=== PATIENT | male | born 1950 | race Caucasian/White ===

== ENCOUNTER 2017-11-29 21:47 | Inpatient (IN) | payer MEDICARE, OTHER ==
[~2017-11-29] VITALS: Ht 175.3 cm; Wt 93.9 kg
[2017-11-29] MEDS ORDERED: fentaNYL PF VIAL 100 MCG/2 ML VIAL IV ONE ×4 (22:00→23:45)
[2017-11-29 22:03] LABS: BASO # 0.1 x10^3/uL (0.0-0.2); BASO % 1 % (0-3); EOS # 0.4 x10^3/uL (0.0-0.7); EOS % 4 % (0-3); HEMATOCRIT 43.3 % (39.0-53.0); HEMOGLOBIN 15.4 g/dL (13.0-17.5); LYMPH # 4.5 x10^3/uL (1.0-4.8); LYMPH % 37 % (24-48); MEAN CORPUSCULAR HEMOGLOBIN 31 pg (25-35); MEAN CORPUSCULAR HGB CONC 36 g/dL (31-37); MEAN CORPUSCULAR VOLUME 86 fL (79-100); MONO # 1.2 x10^3/uL (0.0-1.1); MONO % 10 % (0-9); NEUT # 5.8 x10^3uL (1.8-7.7); NEUT % 48 % (31-73); PLATELET COUNT 214 x10^3/uL (140-400); RED BLOOD COUNT 5.03 x10^6/uL (4.30-5.70); WHITE BLOOD COUNT 12.1 x10^3/uL (4.0-11.0)
[2017-11-29 22:06] LABS: CREATININE ISTAT 1.2 mg/dL (0.5-1.4); HEMOGLOBIN ISTAT 14.6 g/dL (14-18); ION CA ISTAT 1.09 mmol/L (1.13-1.32); POTASSIUM ISTAT 3.5 mmol/L (3.5-5.0)
[2017-11-29] MEDS ORDERED: NITROGLYCERIN SUBLINGUAL 0.4 MG BOTTLE OF 25. SL ONE (22:13)
[2017-11-29 22:14] LABS: CALCIUM 9.4 mg/dL (8.5-10.1); CREATININE 1.3 mg/dL (0.7-1.3); GFR 54.9; POTASSIUM 3.7 mmol/L (3.5-5.1)
[2017-11-29] MEDS ORDERED: fentaNYL PF VIAL 100 MCG/2 ML VIAL ONE ×2 (22:14→22:47)
[2017-11-29 22:15] LABS: PROTHROMBIN TIME PATIENT 13.8 SEC (11.7-14.0)
[2017-11-29] MEDS ORDERED: NITROGLYCERIN SUBLINGUAL 0.4 MG BOTTLE OF 25. SL PRN (22:15)
[2017-11-29] MEDS ORDERED: CONTRAST GIVEN. MC PRN (22:15)
[2017-11-29] MEDS ORDERED: IOHEXOL 300 MG/ML 100ML VIAL. IV ONE (22:15)
[2017-11-29] MEDS ORDERED: HEPARIN 25,000UTS/500ML PREMIX 500 ML IV ONE (22:21)
[2017-11-29] MEDS ORDERED: HEPARIN for IV BOLUS 10,000 UNIT/10 ML VIAL. ONE ×2 (22:21→23:13)
--- NOTE | 2017-11-29 22:21 | PHYS DOC ---
Adult General Chief Complaint Chief Complaint: CHEST PAIN-CARDIAC NATURE HPI HPI Patient is a 67 year old male who presents with chest pain. Patient was at rest about 30 minutes prior to presentation when he had onset of severe chest pain which she describes to be crushing. The pain radiates to the left arm and is also severe in the left arm. Patient does have some shortness of breath associated with it symptom. He has not had this previously. He has no prior known history of coronary artery disease although he does take medications for hyperlipidemia. The patient has been at baseline health otherwise. No recent fever, chills, cough. He did not have diaphoresis or palpitations. And route to the emergency department, the patient was perceived to have ST elevation on his EKG. He was given a full strength aspirin along with 2 nitroglycerin. On arrival to the ER, the patient complains of 9/10 ongoing chest pain symptoms. Blood pressure is noted to be 170. EKG does not reveal acute STEMI initially. The patient is taken to CT immediately for CT angiogram. Review of Systems Review of Systems Constitutional: Denies fever or chills Eyes: Denies change in visual acuity HENT: Denies nasal congestion Respiratory: Denies cough Cardiovascular: No additional information not addressed in HPI GI: Denies abdominal pain Musculoskeletal: Denies back pain or joint pain Integument: Denies rash or skin lesions Neurologic: Denies headache Endocrine: Denies polyuria All other systems were reviewed and found to be within normal limits, except as documented in this note. Current Medications Current Medications Current Medications Medications (Trade) Dose Ordered Sig/Daniela Start Time Stop Time Status Last Admin Dose Admin Fentanyl Citrate (Fentanyl 2ml Vial) 100 mcg STK-MED ONCE 11/29/17 22:14 11/29/17 22:15 DC Heparin Sodium (Porcine) (Heparin Sodium) 10,000 unit STK-MED ONCE 11/29/17 22:21 11/29/17 22:22 DC Heparin Sodium/ Dextrose 500 ml @ As Directed STK-MED ONCE 11/29/17 22:21 11/29/17 22:22 DC Heparin Sodium/ Sodium Chloride 1,000 ml @ As Directed STK-MED ONCE 11/29/17 22:45 11/29/17 22:46 DC Info (CONTRAST GIVEN -- Rx MONITORING) 1 each PRN DAILY PRN 11/29/17 22:15 12/01/17 22:14 Iodixanol (Visipaque 320) 100 ml STK-MED ONCE 11/29/17 22:45 11/29/17 22:46 DC Iohexol (Omnipaque 300 Mg/ml) 90 ml 1X ONCE 11/29/17 22:15 11/29/17 22:16 DC 11/29/17 22:18 90 ML Lidocaine HCl (Xylocaine 1% Pf 30ml Vial) 30 ml STK-MED ONCE 11/29/17 22:45 11/29/17 22:46 DC Morphine Sulfate (Morphine Sulfate) 10 mg STK-MED ONCE 11/29/17 22:36 11/29/17 22:37 DC Nitroglycerin (Nitrostat) 0.4 mg STK-MED ONCE 11/29/17 22:13 11/29/17 22:14 DC Nitroglycerin/ Dextrose 250 ml @ 0 mls/hr 1X ONCE 11/29/17 22:30 11/29/17 22:31 DC 11/29/17 22:33 1.5 MLS/HR Allergies Allergies Allergies Coded Allergies Type Severity Reaction Last Updated Verified No Known Drug Allergies 11/29/17 No Physical Exam Physical Exam Constitutional: Well developed, well nourished, significant distress 2/2 pain HENT: Normocephalic, atraumatic, bilateral external ears normal, oropharynx moist Eyes: PERRLA, EOMI, conjunctiva normal Neck: Normal range of motion, no tenderness, supple Cardiovascular:Heart rate regular rhythm, no murmur Lungs & Thorax: Bilateral breath sounds clear to auscultation Abdomen: Bowel sounds normal, soft, no tenderness Skin: Warm, dry, no erythema, no rash Extremities: No tenderness, no cyanosis, no clubbing, ROM intact, no edema Neurologic: Alert and oriented X 3 Psychologic: Affect normal Current Patient Data Vital Signs Vital Signs Date Time Temp Pulse Resp B/P (MAP) Pulse Ox O2 Delivery O2 Flow Rate FiO2 11/29/17 22:43 78 20 149/92 (111) 98 Nasal Cannula 2.0 11/29/17 21:47 98.0 98.0 Lab Values Laboratory Tests Test 11/29/17 21:53 11/29/17 21:55 11/29/17 21:58 POC Troponin I 0.01 ng/ml (<0.08) White Blood Count 12.1 x10^3/uL (4.0-11.0) H Red Blood Count 5.03 x10^6/uL (4.30-5.70) Hemoglobin 15.4 g/dL (13.0-17.5) Hematocrit 43.3 % (39.0-53.0) Mean Corpuscular Volume 86 fL (79-100) Mean Corpuscular Hemoglobin 31 pg (25-35) Mean Corpuscular Hemoglobin Concent 36 g/dL (31-37) Red Cell Distribution Width 14.0 % (11.5-14.5) Platelet Count 214 x10^3/uL (140-400) Neutrophils (%) (Auto) 48 % (31-73) Lymphocytes (%) (Auto) 37 % (24-48) Monocytes (%) (Auto) 10 % (0-9) H Eosinophils (%) (Auto) 4 % (0-3) H Basophils (%) (Auto) 1 % (0-3) Neutrophils # (Auto) 5.8 x10^3uL (1.8-7.7) Lymphocytes # (Auto) 4.5 x10^3/uL (1.0-4.8) Monocytes # (Auto) 1.2 x10^3/uL (0.0-1.1) H Eosinophils # (Auto) 0.4 x10^3/uL (0.0-0.7) Basophils # (Auto) 0.1 x10^3/uL (0.0-0.2) Prothrombin Time 13.8 SEC (11.7-14.0) Prothrombin Time INR 1.1 (0.8-1.1) PTT 35 SEC (24-38) Sodium Level 140 mmol/L (136-145) Potassium Level 3.7 mmol/L (3.5-5.1) Chloride Level 103 mmol/L (98-107) Carbon Dioxide Level 28 mmol/L (21-32) Anion Gap 9 (6-14) 17 mmol/L (6-14) H Blood Urea Nitrogen 19 mg/dL (8-26) Creatinine 1.3 mg/dL (0.7-1.3) Estimated GFR (Cockcroft-Gault) 54.9 Glucose Level 169 mg/dL (70-99) H 162 mg/dL (70-99) H Calcium Level 9.4 mg/dL (8.5-10.1) Troponin I Quantitative < 0.017 ng/mL (0.000-0.055) POC Hemoglobin 14.6 g/dL (14-18) POC Hematocrit 43 % (37-52) POC Sodium 141 mmol/L (135-145) POC Potassium 3.5 mmol/L (3.5-5.0) POC Chloride 103 mmol/L (98-110) POC Total CO2 26 mmol/L (23-32) POC Blood Urea Nitrogen 22 mg/dL (8-26) POC Creatinine 1.2 mg/dL (0.5-1.4) POC Ionized Calcium (Jones) 1.09 mmol/L (1.13-1.32) L Laboratory Tests 11/29/17 21:55 Laboratory Tests 11/29/17 21:55 11/29/17 21:58 EKG EKG No STEMI Interpretation Time: 21:55 Radiology/Procedures Radiology/Procedures [] Course & Med Decision Making Course & Med Decision Making Pertinent Labs and Imaging studies reviewed. (See chart for details) Patient was evaluated immediately upon arrival to the emergency department. He has a presentation that is very concerning for myocardial infarction. The initial EKG did not have significant ST elevation or reciprocal changes. Because of this, STEMI was not activated immediately. The patient was taken to CT scan immediately for CT angiogram to r/o dissection. Upon return from the CT scanner, a repeat EKG was completed which was more concerning for elevation in V1-V3. Cardiology was consulted via telephone (Dr. Serrano) Upon receipt of the second EKG decision was made to activate the STEMI protocol. Patient already received aspirin and route to the emergency department. Meds given in the ER: - Fentanyl 75 mcg x 2 doses - Fentanyl 100 mcg x 1 - Morphine 6 mg IV - Heparin 4,000 u bolus - Heparin gtt started - NTG gtt 22:45: Patient to catheter builder. No acute events during the ED course. Dragon Disclaimer Dragon Disclaimer This electronic medical record was generated, in whole or in part, using a voice recognition dictation system. PATRIZIA CASTILLO DO Nov 29, 2017 22:21
[2017-11-29] MEDS ORDERED: HEPARIN 25,000UTS/500ML PREMIX 500 ML IV PRN (22:30)
[2017-11-29] MEDS ORDERED: NITROGLYCERIN PREMIX 250 ML IV ONE (22:30)
[2017-11-29] MEDS ORDERED: HEPARIN for IV BOLUS 10,000 UNIT/10 ML VIAL. IV ONE ×2 (22:30→23:45)
[2017-11-29] MEDS ORDERED: MORPHINE SULFATE 10 MG/ML VIAL. ONE (22:36)
--- NOTE | 2017-11-29 22:41 | RAD ---
CTA chest abdomen and pelvis with and without contrast: History: Sudden onset of severe chest pain and left arm weakness Axial helical images of the chest abdomen and pelvis were obtained after the administration of 90 cc IV Omni 300 contrast. Oral contrast was not utilized. Postcontrast imaging is timed appropriately for arterial evaluation and multiplanar reconstruction was performed on a separate imaging workstation including 3-D maximum intensity projected imaging as well as 3-D arterial surface rendering. Comparison: none CT OF THE CHEST WITH IV CONTRAST: The thoracic aorta appears normal. There is significant coronary artery calcifications. The lungs are clear. The pulmonary arteries are well-opacified without filling defects. There is no mediastinal lymphadenopathy or hematoma. There is no hilar lymphadenopathy. Impression: Significant coronary artery calcifications. Normal thoracic aorta. End Impression CT SCAN OF THE ABDOMEN WITH IV CONTRAST: Findings: There is atherosclerotic disease within the infrarenal abdominal aorta with calcification and soft plaque. There is no stenosis or dissection. There is no aneurysm. Major arteries arising from the aorta appear normal. Liver: Unremarkable Spleen: Unremarkable Pancreas: Unremarkable Adrenal Glands: Unremarkable Kidneys: Unremarkable Evaluation of stomach and bowel is limited without oral contrast. There is no mass or lymphadenopathy. There is no free air. There is no free fluid. There is spondylolysis and grade 2 anterolisthesis of L5 on S1 with compression of the intraforaminal course the exiting nerve roots bilaterally. Impression: There is spondylolysis and grade 2 anterolisthesis of L5 on S1 with compression of the intraforaminal course the exiting nerve roots bilaterally. No acute findings. End Impression CT OF THE PELVIS WITH IV CONTRAST: There is atherosclerotic disease of the common iliac arteries with left less than 50 percent percent stenosis. There is atherosclerotic disease of the internal iliac arteries. The appendix is normal. There is a fat-containing inguinal canal hernia on the right. There is no lymphadenopathy or free fluid. The bladder appears normal. There is no pericolonic inflammation. Impression: Atherosclerotic disease. No acute findings. End impression PQRS Compliance Statement: One or more of the following individualized dose reduction techniques were utilized for this examination: 1. Automated exposure control 2. Adjustment of the mA and/or kV according to patient size 3. Use of iterative reconstruction technique Electronically signed by: Deyvi Kline III, MD (11/29/2017 10:38 PM) [id number]
[2017-11-29] MEDS ORDERED: LIDOCAINE 1% PF 30 ML VIAL. ONE (22:45)
[2017-11-29] MEDS ORDERED: MORPHINE SULFATE 10 MG/ML VIAL. IV ONE (22:45)
[2017-11-29] MEDS ORDERED: IODIXANOL 320 MG/ML 100 ML VIAL. ONE (22:45)
[2017-11-29] MEDS ORDERED: MIDAZOLAM HCL/PF 2 MG/2 ML VIAL. ONE (22:47)
[2017-11-29] MEDS ORDERED: ACETAMINOPHEN 325 MG TABLET. PO PRN (23:00)
[2017-11-29] MEDS ORDERED: MORPHINE SULFATE 10 MG/ML VIAL. IV PRN (23:00)
[2017-11-29] MEDS ORDERED: ONDANSETRON PF 4 MG/2 ML VIAL. IV PRN (23:00)
[2017-11-29] MEDS ORDERED: TIROFIBAN 5MG -0.9% NS 100 ML IV ONE (23:13)
[2017-11-29] MEDS ORDERED: PRASUGREL 10 MG TABLET. ONE (23:40)
[2017-11-29] MEDS ORDERED: PRASUGREL 10 MG TABLET. PO ONE (23:45)
[2017-11-29] MEDS ORDERED: IODIXANOL 320 MG/ML 100 ML VIAL. IART ONE (23:45)
[2017-11-29] MEDS ORDERED: LIDOCAINE 1% PF 30 ML VIAL. INJ ONE (23:45)
[2017-11-29] MEDS ORDERED: TIROFIBAN 5MG -0.9% NS 100 ML IV PRN (23:45)
[2017-11-29] MEDS ORDERED: MIDAZOLAM HCL/PF 2 MG/2 ML VIAL. IV ONE (23:45)
[2017-11-29] MEDS ORDERED: NITROGLYCERIN 200 MCG/2 ML SYRINGE FOR CATH/VASC LAB. ICAR ONE (23:45)
--- NOTE | 2017-11-29 23:59 | PDOC2 ---
CARDIOLOGY CONSULT NOTE CHEIF COMPLAINT: Crushing chest pain HPI: 67-year-old male without any significant past cardiac history presented to the ER today with 30 minutes of crushing chest pain. Initial evaluation with a CT of the chest did not reveal any dissection. His EKG was suggestive of an anterior STEMI. The cardiac catheter lab team was activated. The patient was urgently taken to the Cath Lab Manager for further evaluation treatment. Prior to presentation patient was doing well but apparently was having some dyspnea for which his PCP was evaluating him with PFTs. Denies any other significant cardiac issues at baseline. PMHX: Dyslipidemia Prior alcohol abuse remotely SOCHX: No alcohol, tobacco or illicit drug use. He is . FAMHX: Noncontributory CURRENT MEDS: Patient started on aspirin, statin, Effient ALLERGIES: Allergies Coded Allergies Type Severity Reaction Last Updated Verified No Known Drug Allergies 11/29/17 No ROS: Negative for 10 out of 14 systems reviewed also otherwise mentioned above in history of present illness PHYSICAL EXAM: Vital Signs: Vital Signs Date Time Temp Pulse Resp B/P (MAP) Pulse Ox O2 Delivery O2 Flow Rate FiO2 11/29/17 23:52 17 94 3.0 11/29/17 22:53 83 145/94 (111) Nasal Cannula 11/29/17 21:47 98.0 98.0 Physical Exam: GEN.: Alert and oriented, mild to moderate distress due to chest pain. HEENT: Head is normocephalic, atraumatic NECK: Supple. LUNGS: Clear to auscultation. HEART: RRR, S1, S2 present. Peripheral pulses intact ABDOMEN: Soft, nontender. Positive bowel sounds. EXTREMITIES: Without any cyanosis. NEUROLOGIC: Normal speech, normal tone PSYCHIATRIC: Normal affect, normal mood. SKIN: No ulcerations DIAGNOSTIC TESTING: EKG demonstrates anteroseptal Q waves with [address] elevation in V1 through V3. Troponin negative Creatinine 1.3. CT of the chest does not reveal any significant pathology except for significant coronary artery consultation. Cardiac catheterization demonstrates heavy calcification in the coronary arteries with a proximal 100% occlusion of the LAD. The patient underwent a PCI to the LAD with implantation of a 3.25 x 20 mm Alpine drug-eluting stent postdilated with 3.5 mm balloon. Please see catheter report for full details. ASSESSMENT: 1. Anterior STEMI 2. Dyslipidemia PLAN: 1. Continue aspirin, Effient 10 mg daily and atorvastatin 40 mg daily 2. Plan for routine echocardiogram tomorrow. 3. Cardiac rehabilitation referral and routine post-STEMI management. 4. Serial enzymes and EKGs. Thank you for this consultation. We will follow-up with him in the morning. PADDY ROMO MD Nov 29, 2017 23:59
[2017-11-30] VITALS (16 sets, daily range): BP systolic 94–120; BP diastolic 61–80
[2017-11-30] MEDS ORDERED: ACETAMINOPHEN 325 MG TABLET. PO PRN
[2017-11-30] MEDS ORDERED: ONDANSETRON PF 4 MG/2 ML VIAL. IV PRN
[2017-11-30] MEDS ORDERED: AMIODARONE 150 MG in IV DEXTROSE 5% 100ML 100 ML IV PRN ×2
[2017-11-30] MEDS ORDERED: ATROPINE 0.5 MG/5 ML DISP.SYRINGE. IV PRN
[2017-11-30] MEDS ORDERED: LIDOCAINE 2% 100 MG/5 ML SYRINGE. IV PRN
[2017-11-30] MEDS ORDERED: NITROGLYCERIN SUBLINGUAL 0.4 MG BOTTLE OF 25. SL PRN
[2017-11-30] MEDS ORDERED: 0.9 % SODIUM CHLORIDE 10 ML DISP.SYRIN. IV PRN
[2017-11-30] MEDS ORDERED: fentaNYL PF VIAL 100 MCG/2 ML VIAL IV PRN
[2017-11-30 04:13] LABS: ALBUMIN 3.6 g/dL (3.4-5.0); CALCIUM 8.7 mg/dL (8.5-10.1); CREATININE 1.1 mg/dL (0.7-1.3); DIRECT BILIRUBIN 0.2 mg/dL (0.0-0.2); GFR 66.6; POTASSIUM 3.8 mmol/L (3.5-5.1); TOTAL BILIRUBIN 0.7 mg/dL (0.2-1.0); TOTAL PROTEIN 6.8 g/dL (6.4-8.2)
[2017-11-30 04:19] LABS: CHOLESTEROL/HDL RATIO 2.9
--- NOTE | 2017-11-30 06:09 | EKG ---
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
--- NOTE | 2017-11-30 06:10 | EKG ---
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
[2017-11-30] MEDS ORDERED: ATOR20TA PO (07:05)
--- NOTE | 2017-11-30 07:11 | EKG ---
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
--- NOTE | 2017-11-30 07:15 | EKG ---
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
[2017-11-30] MEDS ORDERED: ANTI-COAG MONITOR BY PHARMACY. MC PRN (07:30)
--- NOTE | 2017-11-30 07:40 | EKG ---
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
--- NOTE | 2017-11-30 11:33 | CARD ---
MR#: [id number] Date of Study: 11/30/2017 Ordering Physician: PADDY ROMO, Referring Physician: SALINA FREEMAN Tech: Stacy Evans RDCS APPROVED REPORT EXAM: Two-dimensional and M-mode echocardiogram with Doppler and color Doppler. Other Information Quality : Good INDICATION Cardiac Disease: CAD STEMI 2D DIMENSIONS RVDd2.5 (2.9-3.5cm)Left Atrium(2D)3.1 (1.6-4.0cm) IVSd0.9 (0.7-1.1cm)Aortic Root(2D)2.6 (2.0-3.7cm) LVDd3.7 (3.9-5.9cm)LVOT Diameter2.3 (1.8-2.4cm) PWd0.9 (0.7-1.1cm)LVDs2.3 (2.5-4.0cm) FS (%) 30.0 %SV39.9 ml LVEF(%)60.0 (>50%) Aortic Valve AoV Peak Demian.130.4cm/sAoV VTI22.3cm AO Peak GR.6.8mmHgLVOT VTI 19.07cm AO Mean GR.3mmHgAVA (VTI)3.40cm2 Mitral Valve MV E Luvflczf45.0cm/sMV DECEL [id number] MV A Bblumqgk42.3cm/sE/A Ratio1.4 TDI Lateral E' P. V9.20cm/sMedial E' P. V7.50cm/s E/Lateral E'9.9E/Medial E'12.1 Tricuspid Valve TR P. Xvjubagj553yf/sRAP [id number] TR Peak Gr.14cbKyLYUL33muOy Pulmonary Vein S1 Yqissjyt39.2cm/sS2 [place]42.48cm/s D2 Unqiuogp47.5cm/s LEFT VENTRICLE The left ventricle is normal size. There is normal left ventricular wall thickness. Left ventricular systolic function is mildly to moderately decreased. The Ejection Fraction is estimated at 38-40%. Th ere is severe hypokenisis of the anteroseptal, mid to distal septal wall and apex. RIGHT VENTRICLE The right ventricle is normal size. The right ventricular systolic function is normal. ATRIA The left atrium size is normal. The right atrium size is normal. The interatrial septum is intact wit h no evidence for an atrial septal defect or patent foramen ovale as noted on 2-D or Doppler imaging. AORTIC VALVE The aortic valve is calcified but opens well. Doppler and Color Flow revealed no significant aortic r egurgitation. There is no significant aortic valvular stenosis. MITRAL VALVE The mitral valve is calcified but opens well. There is no evidence of mitral valve prolapse. There is no mitral valve stenosis. Doppler and Color-flow revealed trace to mild mitral regurgitation. TRICUSPID VALVE The tricuspid valve is normal in structure and function. Doppler and Color Flow revealed mild tricusp id regurgitation. There is mild pulmonary hypertension. The PA pressure was estimated at 40 mmHg. The re is no tricuspid valve stenosis. PULMONIC VALVE The pulmonic valve is not well visualized. Doppler and Color Flow revealed trace to mild pulmonic maia vular regurgitation. There is no pulmonic valvular stenosis. GREAT VESSELS The aortic root is normal in size. The ascending aorta is normal in size. The IVC is normal in size a nd collapses >50% with inspiration. PERICARDIAL EFFUSION There is no evidence of significant pericardial effusion. Critical Notification Critical Value: No <Conclusion> The left ventricle is normal size. Left ventricular systolic function is mildly to moderately decreased. The Ejection Fraction is estimated at 38-40%. There is severe hypokenisis of the anteroseptal, mid to distal septal wall and apex. There is no significant aortic valvular stenosis. Doppler and Color Flow revealed no significant aortic regurgitation. Doppler and Color-flow revealed trace to mild mitral regurgitation. Doppler and Color Flow revealed mild tricuspid regurgitation. There is mild pulmonary hypertension. The PA pressure was estimated at 40 mmHg. Signed by : Jose Daniel Welsh MD Electronically Approved : 11/30/2017 11:32:49
--- NOTE | 2017-11-30 11:44 | HP ---
ADMIT DATE: 11/29/2017 CHIEF COMPLAINT: Chest pain. HISTORY OF PRESENT ILLNESS: The patient is a pleasant middle-aged male, who presented to the ER late last night with chest pain. He was taken emergently to the label machine operator, he had a stent to the LAD. This morning, he is in the ICU where he is being examined, he is doing better. He is having some residual chest discomfort, but he looks great this morning. We plan to have the patient for another night or two and then he will go home later this week. PAST MEDICAL HISTORY: Hyperlipidemia. ALLERGIES: None. FAMILY HISTORY: Coronary artery disease. SOCIAL HISTORY: He is retired. He has been for 9 years. He does not drink, smoke or take drugs. MEDICATIONS: Reviewed, please refer to the MRAD. REVIEW OF SYSTEMS: GENERAL: No history of weight change, weakness or fevers. SKIN: No bruising, hair changes or rashes. EYES: No blurred, double or loss of vision. NOSE AND THROAT: No history of nosebleeds, hoarseness or sore throat. HEART: He complains of intermittent chest pain, although it is much better after stent. LUNGS: Denies cough, hemoptysis, wheezing or shortness of breath. GASTROINTESTINAL: Denies changes in appetite, nausea, vomiting, diarrhea or constipation. GENITOURINARY: No history of frequency, urgency, hesitancy or nocturia. NEUROLOGIC: Denies history of numbness, tingling, tremor or weakness. PSYCHIATRIC: No history of panic, anxiety or depression. ENDOCRINE: No history of heat or cold intolerance, polyuria or polydipsia. EXTREMITIES: Denies muscle weakness, joint pain, pain on walking or stiffness. PHYSICAL EXAMINATION: VITAL SIGNS: Temperature afebrile, pulse 92, respirations 18, blood pressure 144/90. GENERAL: He is alert, cooperative, in the ICU. HEART: Normal S1 and S2. LUNGS: Clear. ABDOMEN: Soft. EXTREMITIES: No edema. SKIN: No rash. ENDOCRINE: No thyromegaly. LYMPHATICS: No cervical nodes. HEMATOPOIETIC: No bruising. LABORATORY DATA: Troponin is 168. White count is 12. Electrolytes are normal. ASSESSMENT AND PLAN: Acute myocardial infarction with status post cardiac intervention with LAD stent. The patient is doing better in the ICU. We will watch him another day or two, he is at risk for progression of disease, but right now stable. Continue home medicines, he will need to leave on a cardiac cocktail including antiplatelet drugs, beta blockers, REGINA inhibitors, statins, plus or minus Lasix. We appreciate cardiology's rapid intervention. PROGNOSIS: Guarded. FERNANDAL Sarah BRUCE DO DR: TRESSA/sabina JOB#: [id number] / [id number]
[2017-11-30] MEDS: PRASUGREL 10 MG TABLET. PO SCH (13:04)
[2017-11-30] MEDS: ASPIRIN ENTERIC COATED 81 MG TABLET.DR. PO SCH (13:04)
--- NOTE | 2017-11-30 13:51 | CARD ---
MR#: [id number] Date of Study: 11/29/2017 Ordering Physician: OSWALD SERRANO, Referring Physician: SALINA FREEMAN Tech: RT Sony (R) APPROVED REPORT Technologist: RT Sony (R) Nurse: Rupinder De La Vega R.N. Procedure(s) performed: Moderate Sedation time: 46 min [facility], Coronary angiography, PCI of the LAD HISTORY The patient is a 67 year-old male with a history of : dyslipidemia. INDICATION The indication(s) include : STEMI (>0 to less than or equal to 6 hours). PROCEDURE NARRATIVE CLINICAL INFORMATION 67 y.o male presenting with crushing chest pain and anteroseptal ADDISON. INFORMED CONSENT: After explaining the risks and benefits of the procedure and alternatives, verbal informed consent wa s obtained. The patient was brought emergently to the cardiac catheterization lab. A timeout was per formed confirming the patient's name, date of , procedure, and site of procedure. All necessary personnel were wearing the appropriate protective equipment and radiation monitor devices. (See [facility] notes for medications administered). ACCESS: The right groin was sterilely prepped and draped in the usual fashion. The right groin was infiltrat ed with 10 mL of 2% lidocaine for subcutaneous anesthesia. A 6 F sheath was inserted into the right femoral artery without difficulty. Right and left coronary angiography was performed using a JR4 and JL4 catheter. HEMODYNAMICS: AO: 110/78 LVEDP 20 mm Hg No gradient on LV to aortic pullback. LEFT VENTRICULOGRAM: Deferred due to renal insufficiency and contrast load from a previous CT scan in ER to r/o dissection. CORONARY ANGIOGRAPHY: LM is a large caliber vessel with normal angiographic appearance. LAD is a large caliber vessel with a proximal 100% occlusion. LCx is a large caliber non-dominant vessel with a proximal 40% stenosis. The distal vessel is small a nd has a 95% stenosis. OM1 is a moderate caliber branching vessel with 50% stenosis involving the small inferior branch. RCA is a large caliber dominant vessel with a proximal to mid 50% stenosis, followed by a distal 80% stenosis where the vessel rapidly tapers to a 2mm size vessel. RPDA and RPL are small in caliber with mild luminal irregularities. INTERVENTIONAL TECHNIQUE: Heparin and Tirofiban was administered for anticoagulation. Through a 6Fr EBU 3.5 guide catheter, a 0 .014'' Prowater wire was advanced to the distal LAD. Next, the lesion was angioplastied with a 3.0/12 mm balloon and then stented with a 3.25mm/28 Xience AMY. The stent was post-dilated with a 3.5/12 mm NC balloon and there was excellent stent expansion with BENJAMIN 3 flow. Case was complex due to acute S RASHIDA. Left ventricular end diastolic pressure was obtained with a pigtail catheter and pullback was perform ed. All catheter exchanges and advancements were performed over a guidewire. At case completion the right femoral sheath was removed and hemostasis was achieved with an Angioseal Device after limited femoral angiography confirmed adequate vessel size and anatomy. There were no acute complications. T he patient received ASA prior to the case and Prasugrel after the case. Conclusion 1. Anterior STEMI 2. Three vessel coronary artery disease. 3. Successful PCI of the LAD with implantation of a 3.25/28 mm Xience AMY, post-dilated with a 3.5 mm NC balloon. Recommendations ASA 81mg daily indefinitely Prasugrel 10mg daily for 1 full year, consider lifelong DAPT with ASA+Plavix. High dose statin therapy, cardiac rehab. Consider outpt ischemic evaluation in a few weeks to determine need for RCA PCI. Signed by : Oswald Serrano, Electronically Approved : 11/30/2017 13:50:47
--- NOTE | 2017-11-30 14:41 | PDOC ---
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 11/30/17 1440: CARDIO Progress Notes Date and Time Date of Service 11/30/2017 Time of Evaluation 1432 Subjective Subjective: No Chest Pain, No shortness of breath, No Palpitations, No Dizziness Vitals Vitals Vital Signs Date Time Temp Pulse Resp B/P (MAP) Pulse Ox O2 Delivery O2 Flow Rate FiO2 11/30/17 11:00 66 20 112/72 (85) 96 Room Air 11/30/17 09:00 1.0 11/30/17 08:00 97.7 97.7 Weight Weight [ ] Input and Output Intake and Output Intake and Output 11/30/17 07:00 Intake Total 635 ml Output Total 225 ml Balance 410 ml IV Total 635 ml Output Urine Total 225 ml Laboratory Labs Laboratory Tests Test 11/29/17 21:53 11/29/17 21:55 11/29/17 21:58 11/30/17 03:10 Bedside Troponin I 0.01 ng/ml (<0.08) White Blood Count 12.1 x10^3/uL (4.0-11.0) Red Blood Count 5.03 x10^6/uL (4.30-5.70) Hemoglobin 15.4 g/dL (13.0-17.5) Hematocrit 43.3 % (39.0-53.0) Mean Corpuscular Volume 86 fL (79-100) Mean Corpuscular Hemoglobin 31 pg (25-35) Mean Corpuscular Hemoglobin Concent 36 g/dL (31-37) Red Cell Distribution Width 14.0 % (11.5-14.5) Platelet Count 214 x10^3/uL (140-400) Neutrophils (%) (Auto) 48 % (31-73) Lymphocytes (%) (Auto) 37 % (24-48) Monocytes (%) (Auto) 10 % (0-9) Eosinophils (%) (Auto) 4 % (0-3) Basophils (%) (Auto) 1 % (0-3) Neutrophils # (Auto) 5.8 x10^3uL (1.8-7.7) Lymphocytes # (Auto) 4.5 x10^3/uL (1.0-4.8) Monocytes # (Auto) 1.2 x10^3/uL (0.0-1.1) Eosinophils # (Auto) 0.4 x10^3/uL (0.0-0.7) Basophils # (Auto) 0.1 x10^3/uL (0.0-0.2) Prothrombin Time 13.8 SEC (11.7-14.0) Prothromb Time International Ratio 1.1 (0.8-1.1) Activated Partial Thromboplast Time 35 SEC (24-38) Sodium Level 140 mmol/L (136-145) 141 mmol/L (136-145) Potassium Level 3.7 mmol/L (3.5-5.1) 3.8 mmol/L (3.5-5.1) Chloride Level 103 mmol/L (98-107) 106 mmol/L (98-107) Carbon Dioxide Level 28 mmol/L (21-32) 26 mmol/L (21-32) Anion Gap 9 (6-14) 17 mmol/L (6-14) 9 (6-14) Blood Urea Nitrogen 19 mg/dL (8-26) 17 mg/dL (8-26) Creatinine 1.3 mg/dL (0.7-1.3) 1.1 mg/dL (0.7-1.3) Estimated GFR (Cockcroft-Gault) 54.9 66.6 Glucose Level 169 mg/dL (70-99) 162 mg/dL (70-99) 140 mg/dL (70-99) Calcium Level 9.4 mg/dL (8.5-10.1) 8.7 mg/dL (8.5-10.1) Troponin I Quantitative < 0.017 ng/mL (0.000-0.055) 168.260 ng/mL (0.000-0.055) Bedside Hemoglobin 14.6 g/dL (14-18) Bedside Hematocrit 43 % (37-52) Bedside Sodium 141 mmol/L (135-145) Bedside Potassium 3.5 mmol/L (3.5-5.0) Bedside Chloride 103 mmol/L (98-110) Bedside Total CO2 26 mmol/L (23-32) Bedside Blood Urea Nitrogen 22 mg/dL (8-26) Bedside Creatinine 1.2 mg/dL (0.5-1.4) Bedside Ionized Calcium (Jones) 1.09 mmol/L (1.13-1.32) Total Bilirubin 0.7 mg/dL (0.2-1.0) Direct Bilirubin 0.2 mg/dL (0.0-0.2) Aspartate Amino Transf (AST/SGOT) 441 U/L (15-37) Alanine Aminotransferase (ALT/SGPT) 75 U/L (16-63) Alkaline Phosphatase 83 U/L (46-116) Creatine Kinase 3471 U/L (39-308) Creatine Kinase MB (Mass) 415.3 ng/mL (0.0-3.6) Creatine Kinase MB Relative Index 12.0 % (0-4) Total Protein 6.8 g/dL (6.4-8.2) Albumin 3.6 g/dL (3.4-5.0) Triglycerides Level 70 mg/dL (0-150) Cholesterol Level 128 mg/dL (0-200) LDL Cholesterol, Calculated 70 mg/dL (0-100) VLDL Cholesterol, Calculated 14 mg/dL (0-40) Non-HDL Cholesterol Calculated 84 mg/dL (0-129) HDL Cholesterol 44 mg/dL (40-60) Cholesterol/HDL Ratio 2.9 Test 11/30/17 10:46 Troponin I Quantitative 141.631 ng/mL (0.000-0.055) Physical Exam HEENT: Neck Supple W Full Motion Chest: Symmetric LUNGS: Clear to Auscultation Heart: S1S2, RRR, other (tele: SR) Abdomen: Soft N/T Extremities: No Edema Neurology: alert, oriented, follow commands Assessment Assessment 1. Anterior STEMI --trop peaked @ 168 --s/p PCI/AMY to LAD; continue DAPT 2. ischemic CMP --LVEF 38-40% --will start low dose BB; BP will not currently support addition of ACEI 3. Dyslipidemia --continue statin therapy PADDY ROMO MD 11/30/17 1708: CARDIO Progress Notes Plan Plan Patient seen and examined. No acute events overnight. Plan as noted above. Discussed with family and patient at bedside. AGATHA VALDEZ APRN Nov 30, 2017 14:40 PADDY ROMO MD Nov 30, 2017 17:08
[2017-11-30] MEDS: CARVEDILOL 3.125 MG TABLET. PO SCH (18:09)
[2017-11-30] MEDS ORDERED: ATORVASTATIN CALCIUM 20 MG TABLET PO SCH (21:00)
[2017-12-01 03:30] VITALS: BP 117/66
[2017-12-01 04:19] LABS: BASO # 0.1 x10^3/uL (0.0-0.2); BASO % 1 % (0-3); EOS # 0.4 x10^3/uL (0.0-0.7); EOS % 3 % (0-3); HEMATOCRIT 42.1 % (39.0-53.0); HEMOGLOBIN 14.6 g/dL (13.0-17.5); LYMPH # 2.5 x10^3/uL (1.0-4.8); LYMPH % 20 % (24-48); MEAN CORPUSCULAR HEMOGLOBIN 30 pg (25-35); MEAN CORPUSCULAR HGB CONC 35 g/dL (31-37); MEAN CORPUSCULAR VOLUME 87 fL (79-100); MONO # 1.5 x10^3/uL (0.0-1.1); MONO % 12 % (0-9); NEUT # 8.3 x10^3uL (1.8-7.7); NEUT % 65 % (31-73); PLATELET COUNT 179 x10^3/uL (140-400); RED BLOOD COUNT 4.83 x10^6/uL (4.30-5.70); RED CELL DISTRIBUTION WIDTH 14.3 % (11.5-14.5); WHITE BLOOD COUNT 12.7 x10^3/uL (4.0-11.0)
[2017-12-01 04:38] LABS: CALCIUM 8.6 mg/dL (8.5-10.1); CREATININE 1.2 mg/dL (0.7-1.3); GFR 60.2; POTASSIUM 4.1 mmol/L (3.5-5.1)
[2017-12-01 07:00] VITALS: BP 96/72
[2017-12-01] MEDS: CARVEDILOL 3.125 MG TABLET. PO SCH (08:33)
[2017-12-01] MEDS: ASPIRIN ENTERIC COATED 81 MG TABLET.DR. PO SCH (08:33)
[2017-12-01] MEDS: PRASUGREL 10 MG TABLET. PO SCH (08:33)
--- NOTE | 2017-12-01 09:38 | PDOC ---
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 seen and examined Pt. alert and oriented; pt. in good affect VSS at bedside; good support Pt. needed O2 this morning; felt like lungs "weren't filling properly" while walking Pt. concerned about upcoming plane flight and his O2 status; discussed issue w/ pt. and Troponin level decreasing Briefly discussed heart meds post-discharge EF: 60% Vitals Vitals Vital Signs Date Time Temp Pulse Resp B/P (MAP) Pulse Ox O2 Delivery O2 Flow Rate FiO2 12/01/17 08:33 93 108/77 12/01/17 07:00 98.4 18 97 Room Air 98.4 11/30/17 09:00 1.0 Physical Exam General: Alert, Oriented X3, Cooperative Heart: Regular rate, Normal S1, Normal S2 Lungs: Clear Extremities: No clubbing, No cyanosis Skin: No rashes, No breakdown Labs LABS Laboratory Tests Test 11/30/17 10:46 12/01/17 03:55 12/01/17 08:03 Troponin I Quantitative 141.631 ng/mL (0.000-0.055) White Blood Count 12.7 x10^3/uL (4.0-11.0) Red Blood Count 4.83 x10^6/uL (4.30-5.70) Hemoglobin 14.6 g/dL (13.0-17.5) Hematocrit 42.1 % (39.0-53.0) Mean Corpuscular Volume 87 fL (79-100) Mean Corpuscular Hemoglobin 30 pg (25-35) Mean Corpuscular Hemoglobin Concent 35 g/dL (31-37) Red Cell Distribution Width 14.3 % (11.5-14.5) Platelet Count 179 x10^3/uL (140-400) Neutrophils (%) (Auto) 65 % (31-73) Lymphocytes (%) (Auto) 20 % (24-48) Monocytes (%) (Auto) 12 % (0-9) Eosinophils (%) (Auto) 3 % (0-3) Basophils (%) (Auto) 1 % (0-3) Neutrophils # (Auto) 8.3 x10^3uL (1.8-7.7) Lymphocytes # (Auto) 2.5 x10^3/uL (1.0-4.8) Monocytes # (Auto) 1.5 x10^3/uL (0.0-1.1) Eosinophils # (Auto) 0.4 x10^3/uL (0.0-0.7) Basophils # (Auto) 0.1 x10^3/uL (0.0-0.2) Sodium Level 141 mmol/L (136-145) Potassium Level 4.1 mmol/L (3.5-5.1) Chloride Level 108 mmol/L (98-107) Carbon Dioxide Level 26 mmol/L (21-32) Anion Gap 7 (6-14) Blood Urea Nitrogen 14 mg/dL (8-26) Creatinine 1.2 mg/dL (0.7-1.3) Estimated GFR (Cockcroft-Gault) 60.2 Glucose Level 114 mg/dL (70-99) Calcium Level 8.6 mg/dL (8.5-10.1) Glucose (Fingerstick) 101 mg/dL (70-99) Review of Systems Review of Systems C/O mild breathing difficulty w/ ambulation Pt. denies generalized pain and weakness Pt. 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 Labs Laboratory Tests Test 11/29/17 21:53 11/29/17 21:55 11/29/17 21:58 11/30/17 01:11 Bedside Troponin I 0.01 ng/ml (<0.08) White Blood Count 12.1 x10^3/uL (4.0-11.0) Red Blood Count 5.03 x10^6/uL (4.30-5.70) Hemoglobin 15.4 g/dL (13.0-17.5) Hematocrit 43.3 % (39.0-53.0) Mean Corpuscular Volume 86 fL (79-100) Mean Corpuscular Hemoglobin 31 pg (25-35) Mean Corpuscular Hemoglobin Concent 36 g/dL (31-37) Red Cell Distribution Width 14.0 % (11.5-14.5) Platelet Count 214 x10^3/uL (140-400) Neutrophils (%) (Auto) 48 % (31-73) Lymphocytes (%) (Auto) 37 % (24-48) Monocytes (%) (Auto) 10 % (0-9) Eosinophils (%) (Auto) 4 % (0-3) Basophils (%) (Auto) 1 % (0-3) Neutrophils # (Auto) 5.8 x10^3uL (1.8-7.7) Lymphocytes # (Auto) 4.5 x10^3/uL (1.0-4.8) Monocytes # (Auto) 1.2 x10^3/uL (0.0-1.1) Eosinophils # (Auto) 0.4 x10^3/uL (0.0-0.7) Basophils # (Auto) 0.1 x10^3/uL (0.0-0.2) Prothrombin Time 13.8 SEC (11.7-14.0) Prothromb Time International Ratio 1.1 (0.8-1.1) Activated Partial Thromboplast Time 35 SEC (24-38) Sodium Level 140 mmol/L (136-145) Potassium Level 3.7 mmol/L (3.5-5.1) Chloride Level 103 mmol/L (98-107) Carbon Dioxide Level 28 mmol/L (21-32) Anion Gap 9 (6-14) 17 mmol/L (6-14) Blood Urea Nitrogen 19 mg/dL (8-26) Creatinine 1.3 mg/dL (0.7-1.3) Estimated GFR (Cockcroft-Gault) 54.9 Glucose Level 169 mg/dL (70-99) 162 mg/dL (70-99) Calcium Level 9.4 mg/dL (8.5-10.1) Troponin I Quantitative < 0.017 ng/mL (0.000-0.055) Bedside Hemoglobin 14.6 g/dL (14-18) Bedside Hematocrit 43 % (37-52) Bedside Sodium 141 mmol/L (135-145) Bedside Potassium 3.5 mmol/L (3.5-5.0) Bedside Chloride 103 mmol/L (98-110) Bedside Total CO2 26 mmol/L (23-32) Bedside Blood Urea Nitrogen 22 mg/dL (8-26) Bedside Creatinine 1.2 mg/dL (0.5-1.4) Bedside Ionized Calcium (Jones) 1.09 mmol/L (1.13-1.32) Nasal Screen MRSA (PCR) Negative (Negative) Test 11/30/17 03:10 11/30/17 10:46 12/01/17 03:55 12/01/17 08:03 Sodium Level 141 mmol/L (136-145) 141 mmol/L (136-145) Potassium Level 3.8 mmol/L (3.5-5.1) 4.1 mmol/L (3.5-5.1) Chloride Level 106 mmol/L (98-107) 108 mmol/L (98-107) Carbon Dioxide Level 26 mmol/L (21-32) 26 mmol/L (21-32) Anion Gap 9 (6-14) 7 (6-14) Blood Urea Nitrogen 17 mg/dL (8-26) 14 mg/dL (8-26) Creatinine 1.1 mg/dL (0.7-1.3) 1.2 mg/dL (0.7-1.3) Estimated GFR (Cockcroft-Gault) 66.6 60.2 Glucose Level 140 mg/dL (70-99) 114 mg/dL (70-99) Calcium Level 8.7 mg/dL (8.5-10.1) 8.6 mg/dL (8.5-10.1) Total Bilirubin 0.7 mg/dL (0.2-1.0) Direct Bilirubin 0.2 mg/dL (0.0-0.2) Aspartate Amino Transf (AST/SGOT) 441 U/L (15-37) Alanine Aminotransferase (ALT/SGPT) 75 U/L (16-63) Alkaline Phosphatase 83 U/L (46-116) Creatine Kinase 3471 U/L (39-308) Creatine Kinase MB (Mass) 415.3 ng/mL (0.0-3.6) Creatine Kinase MB Relative Index 12.0 % (0-4) Troponin I Quantitative 168.260 ng/mL (0.000-0.055) 141.631 ng/mL (0.000-0.055) Total Protein 6.8 g/dL (6.4-8.2) Albumin 3.6 g/dL (3.4-5.0) Triglycerides Level 70 mg/dL (0-150) Cholesterol Level 128 mg/dL (0-200) LDL Cholesterol, Calculated 70 mg/dL (0-100) VLDL Cholesterol, Calculated 14 mg/dL (0-40) Non-HDL Cholesterol Calculated 84 mg/dL (0-129) HDL Cholesterol 44 mg/dL (40-60) Cholesterol/HDL Ratio 2.9 White Blood Count 12.7 x10^3/uL (4.0-11.0) Red Blood Count 4.83 x10^6/uL (4.30-5.70) Hemoglobin 14.6 g/dL (13.0-17.5) Hematocrit 42.1 % (39.0-53.0) Mean Corpuscular Volume 87 fL (79-100) Mean Corpuscular Hemoglobin 30 pg (25-35) Mean Corpuscular Hemoglobin Concent 35 g/dL (31-37) Red Cell Distribution Width 14.3 % (11.5-14.5) Platelet Count 179 x10^3/uL (140-400) Neutrophils (%) (Auto) 65 % (31-73) Lymphocytes (%) (Auto) 20 % (24-48) Monocytes (%) (Auto) 12 % (0-9) Eosinophils (%) (Auto) 3 % (0-3) Basophils (%) (Auto) 1 % (0-3) Neutrophils # (Auto) 8.3 x10^3uL (1.8-7.7) Lymphocytes # (Auto) 2.5 x10^3/uL (1.0-4.8) Monocytes # (Auto) 1.5 x10^3/uL (0.0-1.1) Eosinophils # (Auto) 0.4 x10^3/uL (0.0-0.7) Basophils # (Auto) 0.1 x10^3/uL (0.0-0.2) Glucose (Fingerstick) 101 mg/dL (70-99) Laboratory Tests Test 11/30/17 10:46 12/01/17 03:55 12/01/17 08:03 Troponin I Quantitative 141.631 ng/mL (0.000-0.055) White Blood Count 12.7 x10^3/uL (4.0-11.0) Red Blood Count 4.83 x10^6/uL (4.30-5.70) Hemoglobin 14.6 g/dL (13.0-17.5) Hematocrit 42.1 % (39.0-53.0) Mean Corpuscular Volume 87 fL (79-100) Mean Corpuscular Hemoglobin 30 pg (25-35) Mean Corpuscular Hemoglobin Concent 35 g/dL (31-37) Red Cell Distribution Width 14.3 % (11.5-14.5) Platelet Count 179 x10^3/uL (140-400) Neutrophils (%) (Auto) 65 % (31-73) Lymphocytes (%) (Auto) 20 % (24-48) Monocytes (%) (Auto) 12 % (0-9) Eosinophils (%) (Auto) 3 % (0-3) Basophils (%) (Auto) 1 % (0-3) Neutrophils # (Auto) 8.3 x10^3uL (1.8-7.7) Lymphocytes # (Auto) 2.5 x10^3/uL (1.0-4.8) Monocytes # (Auto) 1.5 x10^3/uL (0.0-1.1) Eosinophils # (Auto) 0.4 x10^3/uL (0.0-0.7) Basophils # (Auto) 0.1 x10^3/uL (0.0-0.2) Sodium Level 141 mmol/L (136-145) Potassium Level 4.1 mmol/L (3.5-5.1) Chloride Level 108 mmol/L (98-107) Carbon Dioxide Level 26 mmol/L (21-32) Anion Gap 7 (6-14) Blood Urea Nitrogen 14 mg/dL (8-26) Creatinine 1.2 mg/dL (0.7-1.3) Estimated GFR (Cockcroft-Gault) 60.2 Glucose Level 114 mg/dL (70-99) Calcium Level 8.6 mg/dL (8.5-10.1) Glucose (Fingerstick) 101 mg/dL (70-99) Medications Current Medications Fentanyl Citrate (Fentanyl 2ml Vial) 75 mcg 1X ONCE IV Last administered on 11/29/17at 22:00; Start 11/29/17 at 22:00; Stop 11/29/17 at 22:13; Status DC Fentanyl Citrate (Fentanyl 2ml Vial) 75 mcg 1X ONCE IV Last administered on 11/29/17at 22:33; Start 11/29/17 at 22:15; Stop 11/29/17 at 22:16; Status DC Nitroglycerin (Nitrostat) 0.4 mg PRN Q5MIN PRN SL CHEST PAIN Last administered on 11/29/17at 22:33; Start 11/29/17 at 22:15; Stop 11/30/17 at 00:01; Status DC Iohexol (Omnipaque 300 Mg/ml) 90 ml 1X ONCE IV Last administered on 11/29/17at 22:18; Start 11/29/17 at 22:15; Stop 11/29/17 at 22:16; Status DC Nitroglycerin (Nitrostat) 0.4 mg STK-MED ONCE SL ; Start 11/29/17 at 22:13; Stop 11/29/17 at 22:14; Status DC Fentanyl Citrate (Fentanyl 2ml Vial) 100 mcg STK-MED ONCE .ROUTE ; Start at 22:14; Stop 11/29/17 at 22:15; Status DC Info (CONTRAST GIVEN -- Rx MONITORING) 1 each PRN DAILY PRN MC SEE COMMENTS; Start 11/29/17 at 22:15; Stop 12/01/17 at 22:14 Heparin Sodium (Porcine) (Heparin Sodium) 4,000 unit 1X ONCE IV Last administered on 11/29/17at 22:28; Start 11/29/17 at 22:30; Stop 11/29/17 at 22:31; Status DC Heparin Sodium/ Dextrose 500 ml @ 0 mls/hr CONT PRN IV SEE I/O RECORD Last administered on 11/29/17at 22:32; Start 11/29/17 at 22:30 Heparin Sodium (Porcine) (Heparin Sodium) 10,000 unit STK-MED ONCE .ROUTE ; Start 11/29/17 at 22:21; Stop 11/29/17 at 22:22; Status DC Heparin Sodium/ Dextrose 500 ml @ As Directed STK-MED ONCE IV ; Start 11/29/17 at 22:21; Stop 11/29/17 at 22:22; Status DC Nitroglycerin/ Dextrose 250 ml @ 0 mls/hr 1X ONCE IV Last administered on at 22:33; Start 11/29/17 at 22:30; Stop 11/29/17 at 22:31; Status DC Morphine Sulfate (Morphine Sulfate) 6 mg 1X ONCE IV Last administered on at 22:35; Start 11/29/17 at 22:45; Stop 11/29/17 at 22:46; Status DC Morphine Sulfate (Morphine Sulfate) 10 mg STK-MED ONCE .ROUTE ; Start 11/29/17 at 22:36; Stop 11/29/17 at 22:37; Status DC Iodixanol (Visipaque 320) 100 ml STK-MED ONCE .ROUTE ; Start 11/29/17 at 22:45; Stop 11/29/17 at 22:46; Status DC Lidocaine HCl (Xylocaine 1% Pf 30ml Vial) 30 ml STK-MED ONCE .ROUTE ; Start 11/29 at 22:45; Stop 11/29/17 at 22:46; Status DC Heparin Sodium/ Sodium Chloride 1,000 ml @ As Directed STK-MED ONCE .ROUTE ; Start 11/29/17 at 22:45; Stop 11/29/17 at 22:46; Status DC Fentanyl Citrate (Fentanyl 2ml Vial) 100 mcg STK-MED ONCE .ROUTE ; Start at 22:47; Stop 11/29/17 at 22:48; Status DC Midazolam HCl (Versed) 2 mg STK-MED ONCE .ROUTE ; Start 11/29/17 at 22:47; Stop 11/29/17 at 22:48; Status DC Ondansetron HCl (Zofran) 4 mg PRN Q8HRS PRN IV NAUSEA/VOMITING; Start 11/29/17 at 23:00; Stop 11/30/17 at 00:01; Status DC Morphine Sulfate (Morphine Sulfate) 6 mg PRN Q2HR PRN IV PAIN MILD; Start at 23:00; Stop 11/30/17 at 22:59; Status DC Acetaminophen (Tylenol) 650 mg PRN Q4HRS PRN PO FEVER; Start 11/29/17 at 23:00; Stop 11/29/17 at 23:58; Status DC Fentanyl Citrate (Fentanyl 2ml Vial) 100 mcg 1X ONCE IV Last administered on at 22:50; Start 11/29/17 at 23:15; Stop 11/29/17 at 23:16; Status DC Heparin Sodium (Porcine) (Heparin Sodium) 10,000 unit STK-MED ONCE .ROUTE ; Start 11/29/17 at 23:13; Stop 11/29/17 at 23:14; Status DC Tirofiban/Sodium Chloride 100 ml @ As Directed STK-MED ONCE IV ; Start 11/29/17 at 23:13; Stop 11/29/17 at 23:14; Status DC Nitroglycerin (Nitroglycerin) 100 mcg 1X ONCE ICAR Last administered on at 23:45; Start 11/29/17 at 23:45; Stop 11/29/17 at 23:46; Status DC Heparin Sodium/ Sodium Chloride (HEPARIN for ARTERIAL LINE FLUSH) 1,000 unit 1X ONCE IART Last administered on 11/29/17at 23:51; Start 11/29/17 at 23:45; Stop 11/29/17 at 23:46; Status DC Midazolam HCl (Versed) 1 mg 1X ONCE IV Last administered on 11/29/17at 23:52; Start 11/29/17 at 23:45; Stop 11/29/17 at 23:46; Status DC Fentanyl Citrate (Fentanyl 2ml Vial) 50 mcg 1X ONCE IV Last administered on 11/29/17at 23:52; Start 11/29/17 at 23:45; Stop 11/29/17 at 23:46; Status DC Iodixanol (Visipaque 320) 100 ml 1X ONCE IART Last administered on 11/29/17at 23 :51; Start 11/29/17 at 23:45; Stop 11/29/17 at 23:46; Status DC Prasugrel (Effient) 60 mg 1X ONCE PO Last administered on 11/29/17at 23:51; Start 11/29/17 at 23:45; Stop 11/29/17 at 23:46; Status DC Heparin Sodium (Porcine) (Heparin Sodium) 4,000 unit 1X ONCE IV Last administered on 11/29/17at 23:53; Start 11/29/17 at 23:45; Stop 11/29/17 at 23:46; Status DC Tirofiban/Sodium Chloride 100 ml @ 0 mls/hr CONT PRN IV PER PROTOCOL Last administered on 11/29/17at 23:51; Start 11/29/17 at 23:45; Stop 11/30/17 at 17:44; Status DC Lidocaine HCl (Xylocaine 1% Pf 30ml Vial) 20 ml 1X ONCE INJ Last administered on 11/29/17at 23:52; Start 11/29/17 at 23:45; Stop 11/29/17 at 23:46; Status DC Prasugrel (Effient) 10 mg STK-MED ONCE .ROUTE ; Start 11/29/17 at 23:40; Stop 11/29/17 at 23:41; Status DC Sodium Chloride (Normal Saline Flush) 3 ml QSHIFT PRN IV AFTER MEDS AND BLOOD DRAWS; Start 11/30/17 at 00:00 Aspirin (Ecotrin) 81 mg DAILYWBKFT PO Last administered on 12/01/17at 08:33; Start 11/30/17 at 08:00 Prasugrel (Effient) 10 mg DAILYWBKFT PO Last administered on 12/01/17at 08:33; Start 11/30/17 at 08:00 Atorvastatin Calcium (Lipitor) 40 mg QHS PO Last administered on 11/30/17at 20: 22; Start 11/30/17 at 21:00 Acetaminophen (Tylenol) 650 mg PRN Q6HRS PRN PO HEADACHE/ TEMP; Start 11/30/17 at 00:00 Fentanyl Citrate (Fentanyl 2ml Vial) 50 mcg PRN Q1HR PRN IV MODERATE OR SEVERE PAIN; Start 11/30/17 at 00:00 Ondansetron HCl (Zofran) 4 mg PRN Q6HRS PRN IV NAUSEA/VOMITING Last administered on 11/30/17at 07:52; Start 11/30/17 at 00:00 Nitroglycerin (Nitrostat) 0.4 mg PRN Q5MIN PRN SL CHEST PAIN; Start 11/30/17 at 00:00 Amiodarone HCl 150 mg/Dextrose 103 ml @ 600 mls/hr 1X PRN PRN IV FOR VENTRICULAR TACHYCARDIA; Start 11/30/17 at 00:00 Lidocaine HCl (Lidocaine HCl 2% Abboject) 100 mg 1X PRN PRN IV FOR VENTRICULAR TACHYCARDIA; Start 11/30/17 at 00:00 Atropine Sulfate (ATROPINE 0.5mg SYRINGE) 0.5 mg PRN 1X PRN IV BRADYCARDIA; Start 11/30/17 at 00:00 Info (Anti-Coagulation Monitoring By Pharmacy) 1 each PRN DAILY PRN MC SEE COMMENTS; Start 11/30/17 at 07:30; Stop 11/30/17 at 10:07; Status DC Carvedilol (Coreg) 3.125 mg BIDWMEALS PO Last administered on 12/01/17at 08:33; Start 11/30/17 at 17:00 Active Scripts Active Reported Lipitor (Atorvastatin Calcium) 20 Mg Tablet 20 Mg PO HS Vitals/I & O Vital Sign - Last 24 Hours 11/30/17 11/30/17 11/30/17 11/30/17 10:00 11:00 18:09 18:17 Temp 98.6 98.6 Pulse 71 66 66 68 Resp 17 20 18 B/P (MAP) 118/77 (91) 112/72 (85) 112/72 115/68 (84) Pulse Ox 94 96 97 O2 Delivery Room Air Room Air Room Air 11/30/17 11/30/17 11/30/17 12/01/17 21:00 22:08 22:45 03:30 Temp 98.9 98.4 98.9 98.4 Pulse 99 92 Resp 20 18 B/P (MAP) 94/61 (72) 117/66 (83) Pulse Ox 96 93 O2 Delivery Room Air Room Air Room Air Room Air 12/01/17 12/01/17 07:00 08:33 Temp 98.4 98.4 Pulse 81 93 Resp 18 B/P (MAP) 96/72 (80) 108/77 Pulse Ox 97 O2 Delivery Room Air Intake and Output 11/30/17 11/30/17 12/01/17 15:00 23:00 07:00 Intake Total 600 ml 790 ml Output Total 700 ml Balance -100 ml 790 ml CASTLENIAL K III DO Dec 01, 2017 09:38
[2017-12-01 11:33] VITALS: BP 119/71
[2017-12-01] MEDS ORDERED: PRAS10TA9 PO (13:06)
[2017-12-01] MEDS ORDERED: CARV3.12 PO (13:06)
[2017-12-01] MEDS ORDERED: ASPI-630 PO (13:06)
--- NOTE | 2017-12-01 14:02 | PDOC ---
WING GUILLAUME [employer] TECHNICIAN 12/01/17 1402: CARDIO Progress Notes Date and Time Date of Service 12/01/2017 Time of Evaluation 1230 Subjective Subjective: No Chest Pain, No shortness of breath, No Palpitations Vitals Vitals Vital Signs Date Time Temp Pulse Resp B/P (MAP) Pulse Ox O2 Delivery O2 Flow Rate FiO2 12/01/17 11:33 97.7 83 18 119/71 (87) 95 Room Air 97.7 12/01/17 09:00 2.0 Weight Weight [ ] Input and Output Intake and Output Intake and Output 12/01/17 07:00 Intake Total 1390 ml Output Total 700 ml Balance 690 ml Intake Oral 1390 ml Output Urine Total 700 ml # Voids 7 Laboratory Labs Laboratory Tests Test 12/01/17 03:55 12/01/17 08:03 12/01/17 12:19 White Blood Count 12.7 x10^3/uL (4.0-11.0) Red Blood Count 4.83 x10^6/uL (4.30-5.70) Hemoglobin 14.6 g/dL (13.0-17.5) Hematocrit 42.1 % (39.0-53.0) Mean Corpuscular Volume 87 fL (79-100) Mean Corpuscular Hemoglobin 30 pg (25-35) Mean Corpuscular Hemoglobin Concent 35 g/dL (31-37) Red Cell Distribution Width 14.3 % (11.5-14.5) Platelet Count 179 x10^3/uL (140-400) Neutrophils (%) (Auto) 65 % (31-73) Lymphocytes (%) (Auto) 20 % (24-48) Monocytes (%) (Auto) 12 % (0-9) Eosinophils (%) (Auto) 3 % (0-3) Basophils (%) (Auto) 1 % (0-3) Neutrophils # (Auto) 8.3 x10^3uL (1.8-7.7) Lymphocytes # (Auto) 2.5 x10^3/uL (1.0-4.8) Monocytes # (Auto) 1.5 x10^3/uL (0.0-1.1) Eosinophils # (Auto) 0.4 x10^3/uL (0.0-0.7) Basophils # (Auto) 0.1 x10^3/uL (0.0-0.2) Sodium Level 141 mmol/L (136-145) Potassium Level 4.1 mmol/L (3.5-5.1) Chloride Level 108 mmol/L (98-107) Carbon Dioxide Level 26 mmol/L (21-32) Anion Gap 7 (6-14) Blood Urea Nitrogen 14 mg/dL (8-26) Creatinine 1.2 mg/dL (0.7-1.3) Estimated GFR (Cockcroft-Gault) 60.2 Glucose Level 114 mg/dL (70-99) Calcium Level 8.6 mg/dL (8.5-10.1) Glucose (Fingerstick) 101 mg/dL (70-99) 77 mg/dL (70-99) Physical Exam HEENT: Neck Supple W Full Motion Chest: Symmetric LUNGS: Clear to Auscultation Heart: S1S2, RRR (SR), other Abdomen: Soft N/T Extremities: No Edema Neurology: alert, oriented, follow commands Other Exams right groin arteriotomy site intact, no swelling or erythema. Neurovascular status to bilateral LE intact. Assessment Assessment 1. Anterior STEMI: LHC revealed 3VD. S/P PCI/AMY to culprit LAD. Doing well 2. ICM: EF at 40% 3. HLP 4. PAflutter: ischemia induced. Presently SR. Recommendations 1. ASA/effient. lipitor and coreg. Will reeval ACEi need as an outpt as currently BP will not support addition. 2. Encouraged cardiac rehab. Follow up at CHF clinic in 1 week and further need of optimization and need for outpt event monitor. 3. Will consider outpt ischemic evaluation in a few weeks to determine need for RCA PCI. 4. Follow up with primary manager transfusion in 1 month. PADDY ROMO MD 12/02/17 1228: CARDIO Progress Notes Plan Plan Pt. seen and examined. Late entry for 12/01/2017. Agree with above CLEAN UP WORKER note. F/u in 4 weeks in the office. WING GUILLAUME APRN Dec 01, 2017 14:02 PADDY ROMO MD Dec 02, 2017 12:28
[2017-12-01] MEDS ORDERED: ANTI-COAG MONITOR BY PHARMACY. MC PRN (16:00)
== END 2017-12-01 14:00 | disposition home or self-care (01) | DRG 246 ==
LOC: ER 21:47 → 1 WEST ICU 22:45 → 2 SOUTH 11-30 16:19
PROVIDERS: ADMIT Internal Medicine; ATTEND Internal Medicine
PROC: 027034Z Dilation of Coronary Artery, One Artery with Drug-eluting Intraluminal Device, Percutaneous Approach (ICD-10-PCS; principal; 2017-11-29)
PROC: 4A023N7 Measurement of Cardiac Sampling and Pressure, Left Heart, Percutaneous Approach (ICD-10-PCS; 2017-11-29)
PROC: B2111ZZ Fluoroscopy of Multiple Coronary Arteries using Low Osmolar Contrast (ICD-10-PCS; 2017-11-29)
DX: I21.09 ST elevation (STEMI) myocardial infarction involving other coronary artery of anterior wall (principal); I50.43 Acute on chronic combined systolic (congestive) and diastolic (congestive) heart failure; I48.92 Unspecified atrial flutter; E78.5 Hyperlipidemia, unspecified; I25.5 Ischemic cardiomyopathy; I25.10 Atherosclerotic heart disease of native coronary artery without angina pectoris; Z82.49 Family history of ischemic heart disease and other diseases of the circulatory system
CPT/HCPCS: 36415; 71275; 74174; 80047; 80048; 80061; 80076; 82553; 82962; 84484; 85025; 85610; 85730; 87641; 92941; 93005; 93306; 93458; 96365; 96368; 96375; 96376; 99152; 99153; C1713; C1725; C1769; C1771; C1887; C1892; G0269; J1644; J2250; J2270; J2405; J3010; J3490; Q9967; 99285-25; J3246

== ENCOUNTER → 2018-02-26 | Outpatient (CLI) | payer OTHER, MEDICARE ==
[~2018-02-26] MED LIST: ASPI-630 PO; ATOR20TA PO; CARV3.12 PO; PRAS10TA9 PO
--- NOTE | 2018-02-26 16:03 | CARD ---
MR#: [id number] Date of Study: 02/26/2018 Ordering Physician: PADDY ROMO, Referring Physician: PADDY ROMO, Tech: Michelle Car APPROVED REPORT EXAM: Two-dimensional and M-mode echocardiogram with Doppler and color Doppler. Other Information Quality : GoodHR: 66bpm INDICATION Ischemic Cardiomyopathy RISK FACTORS Hyperlipidemia Previous Smoker 2D DIMENSIONS RVDd2.7 (2.9-3.5cm)Left Atrium(2D)4.2 (1.6-4.0cm) IVSd1.1 (0.7-1.1cm)Aortic Root(2D)3.3 (2.0-3.7cm) LVDd4.9 (3.9-5.9cm)LVOT Diameter2.2 (1.8-2.4cm) PWd0.9 (0.7-1.1cm)LVDs2.8 (2.5-4.0cm) FS (%) 42.4 %SV83.5 ml Aortic Valve AoV Peak Demian.117.3cm/sAoV VTI22.4cm AO Peak GR.5.5mmHgLVOT Peak Demian.107.0cm/s LVOT VTI 22.86cmAO Mean GR.3mmHg ROGELIO (VMAX)2.61oq2NMM (VTI)3.99cm2 Mitral Valve MV E Screhkgc05.2cm/sMV DECEL FBPU988vo MV A Beabsvmv34.4cm/sMV QTW24ec E/A Ratio1.2MVA (PHT)3.88cm2 TDI E/Lateral E'7.8E/Medial E'6.0 Pulmonary Valve PV Peak Wksunhdf42.3cm/sPV Peak Grad.3mmHg Tricuspid Valve TR P. Toqemaum072pl/sRAP OOLUXNXQ1txRx TR Peak Gr.27qhGlQJXS94dzPy Pulmonary Vein S1 Gweaxnvt00.9cm/sD2 Bgmhiyhf35.2cm/s PVa dbwqcdmq25dbtx LEFT VENTRICLE The left ventricle is normal size. There is normal left ventricular wall thickness. The Ejection Frac tion is estimated at 40-45%. Severe hypokinesis of mid to distal anterior and anteroseptal and also t he apical marin. Transmitral Doppler flow pattern is normal for age. RIGHT VENTRICLE The right ventricle is normal size. The right ventricular systolic function is normal. ATRIA The left atrium is mildly dilated. The right atrium size is normal. The interatrial septum is intact with no evidence for an atrial septal defect or patent foramen ovale as noted on 2-D or Doppler imagi ng. AORTIC VALVE The aortic valve is normal in structure and function. Doppler and Color Flow revealed trace aortic re gurgitation. There is no significant aortic valvular stenosis. MITRAL VALVE The mitral valve is normal in structure and function. There is no mitral valve stenosis. Doppler and Color-flow revealed trace mitral regurgitation. TRICUSPID VALVE The tricuspid valve is normal in structure and function. Doppler and Color Flow revealed trace tricus pid regurgitation. There is no tricuspid valve stenosis. PULMONIC VALVE The pulmonic valve is not well visualized. Doppler and Color Flow revealed trace pulmonic valvular re gurgitation. GREAT VESSELS The aortic root is normal in size. The IVC is normal in size and collapses >50% with inspiration. PERICARDIAL EFFUSION There is no evidence of significant pericardial effusion. Critical Notification Critical Value: No <Conclusion> Severe hypokinesis of mid to distal anterior and anteroseptal marin and also the apical wall. The Ejection Fraction is estimated at 40-45%. Trace mitral regurgitation. Trace tricuspid regurgitation. There is no evidence of significant pericardial effusion. Signed by : Partha Tenorio, Electronically Approved : 02/26/2018 16:02:37
== END | disposition home or self-care (01) ==
LOC: ECHO 10:49
PROVIDERS: ATTEND Internal Medicine Cardiovascular Disease
DX: I25.5 Ischemic cardiomyopathy (principal); E78.5 Hyperlipidemia, unspecified; Z87.891 Personal history of nicotine dependence
CPT/HCPCS: 93306

== ENCOUNTER → 2018-06-24 | Outpatient (CLI) | payer OTHER ==
[~2018-06-24] MED LIST changes: +IOHEXOL 240 MG/ML 50ML VIAL. PO ONE; +IOHEXOL 300 MG/ML 100ML VIAL. IV ONE
--- NOTE | 2018-06-24 12:52 | RAD ---
EXAM: CT Pelvis with IV contrast CLINICAL HISTORY: RECURRENT INGUINAL HERNIA COMPARISON: none TECHNIQUE: Helical CT of the abdomen and pelvis was performed following the administration of intravenous contrast. Axial, coronal and sagittal reformatted images were generated. PQRS compliance statement - One or more of the following individualized dose reduction techniques were utilized for this study: 1. Automated exposure control 2. Adjustment of the mA and/or kV according to patient size 3. Use of iterative reconstruction technique FINDINGS: Pelvis: Fat-containing right inguinal hernia is seen with the herniated segment measuring approximately 6 x 3.7 x 2.4 cm (craniocaudal by transverse by AP). Minimal fat infiltration is seen approximately. No definite associated fluid is noted. No left inguinal hernia. Small fat-containing periumbilical hernia is partially profiled. Bladder is decompressed. Moderate colonic stool content is seen. A few colonic diverticula are seen. Appendix is normal. No pelvic ascites. Intermittent calcifications of the visualized aorta and iliac arteries. 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 No associated free or loculated fluid collection is seen. Electronically signed by: Anton Weber MD (06/24/2018 12:49 PM) [id number]
== END | disposition home or self-care (01) ==
LOC: CT 08:16
PROVIDERS: ATTEND Surgery
DX: K40.91 Unilateral inguinal hernia, without obstruction or gangrene, recurrent (principal); K42.9 Umbilical hernia without obstruction or gangrene; K57.30 Diverticulosis of large intestine without perforation or abscess without bleeding; M11.20 Other chondrocalcinosis, unspecified site
CPT/HCPCS: 72193; Q9966; Q9967

== ENCOUNTER → 2018-06-24 | Outpatient (CLI) | payer OTHER ==
[~2018-06-24] MED LIST changes: -IOHEXOL 240 MG/ML 50ML VIAL. PO ONE; -IOHEXOL 300 MG/ML 100ML VIAL. IV ONE
[2018-06-24 11:03] LABS: BASO # 0.1 x10^3/uL (0.0-0.2); BASO % 1 % (0-3); EOS # 0.3 x10^3/uL (0.0-0.7); EOS % 4 % (0-3); HEMOGLOBIN 14.9 g/dL (13.0-17.5); LYMPH # 2.6 x10^3/uL (1.0-4.8); LYMPH % 28 % (24-48); MEAN CORPUSCULAR HEMOGLOBIN 30 pg (25-35); MEAN CORPUSCULAR HGB CONC 33 g/dL (31-37); MEAN CORPUSCULAR VOLUME 89 fL (79-100); MONO # 0.9 x10^3/uL (0.0-1.1); MONO % 10 % (0-9); NEUT # 5.4 x10^3uL (1.8-7.7); NEUT % 58 % (31-73); PLATELET COUNT 239 x10^3/uL (140-400); RED BLOOD COUNT 5.04 x10^6/uL (4.30-5.70); RED CELL DISTRIBUTION WIDTH 13.9 % (11.5-14.5); WHITE BLOOD COUNT 9.3 x10^3/uL (4.0-11.0)
[2018-06-24 11:25] LABS: ALBUMIN 3.8 g/dL (3.4-5.0); CALCIUM 9.4 mg/dL (8.5-10.1); GFR 74.1; POTASSIUM 4.8 mmol/L (3.5-5.1); TOTAL BILIRUBIN 1.3 mg/dL (0.2-1.0); TOTAL PROTEIN 7.7 g/dL (6.4-8.2)
== END | disposition home or self-care (01) ==
LOC: LAB 10:46
PROVIDERS: ATTEND Internal Medicine Cardiovascular Disease
DX: I25.5 Ischemic cardiomyopathy (principal); Z87.891 Personal history of nicotine dependence
CPT/HCPCS: 36415; 80053; 85025

== ENCOUNTER → 2018-12-20 | Outpatient (CLI) | payer OTHER ==
--- NOTE | 2018-12-21 09:20 | RAD ---
MR#: [id number] Date of Study: 12/20/2018 Ordering Physician: PADDY ROMO, Referring Physician: JILLIAN MCKAY Tech: RT Lindsay (Oliver) (N) APPROVED REPORT Test Type: Exercise Stress Nurse/Tech: Nohemy Harley RN Test Indications: ischemic cardiomyopathy Cardiac History: Family history,stent to LAD 11/29/17, COPD (former smoker) Medications: See Electronic Medical Record Medical History: See Electronic Medical Record Resting ECG: SB with BBB Resting Heart Rate: 54 bpm Resting Blood Pressure: 130/75mmHg Pretest Chest Pain: No chest pain Nurse/Tech Notes S1,S2 and lungs clear to auscultation. Consent: The procedure was explained to the patient in lay terms. Informed consent was witnessed. Brody eout was entered into [employer] [place]. History and Stress Test performed by RT Lindsay (R) (N) Stress Symptoms No chest pain or symptoms. POST EXERCISE Reason for Termination: Reached target heart rate Target HR: Yes Max HR: 205 bpm 160% of Maximum Predicted HR: 128 bpm Exercise duration: 5:10 min:sec, 2 Stage Exercise capacity: 7.0METs Max Blood Pressure: 149/76mmHg Blood Pressure response to exercise: Normal blood pressure response during stress. Heart Rate response to exercise: WNL Chest Pain: No. Arrhythmia: No. ST Change: No. INTERPRETATION Stress EKG Conclusion: Baseline EKG showed sinus rhythm with old anteroseptal OH. Nondiagnostic rodney es at peak stress. No arrhythmias. Imaging Protocol IMAGE PROTOCOL: Rest Tc-99m/stress Tc-99m 1 day Rest: Stress: Viability: Radiopharm.Tc99m SzildknkmCv56w Sestamibi Dose10.8mCi 33mCi Duration 13min. 13min. Img Date 12/20/2018 12/20/2018 Inj-Img Netm11zoy. 60min. Rest Admin Site:IV - Right AntecubitalAdministrator:RACQUEL Hoover Stress Admin Site: IV - Right AntecubitalAdministrator: RACQUEL Hoover STRESS DATA End Diast. Vol.125.0mlLVEDV index BSA62.0ml End Syst. Vol.63.0mlLVESV index BSA31.0ml Myocardial Mqao676.0gEject. Ubnifwwg00.0% Stress Scores Regional WT1.00Summed WT17.00 Regional WM0.00Summed WM19.00 LV Perfusion Scintigraphic images showed large predominantly fixed defect involving the mid to distal anterior wal l and extending into the anteroseptal and apical wall consistent with previous myocardial infarction with very small amount of reversibility consistent with yokasta-infarct ischemia. Wall Motion Hypokinesis of mid to distal anterior wall, septal wall and apical wall with ejection fraction calcul ated at 50%. LV Perf. Quant 17 Seg. SSS26.00 17 Seg. SRS22.00 17 Seg. SDS4.00 Stress Defect Extent (% LAD)79.40Rest Defect Extent (% LAD)77.50Rev. Defect Extent (% LAD)18.80 Stress Defect Extent (% LCX) 10.00Rest Defect Extent (% LCX)11.30Rev. Defect Extent (% LCX)0.00 Stress Defect Extent (% RCA)30.00Rest Defect Extent (% RCA)34.40Rev. Defect Extent (% RCA)0.00 Stress Defect Extent (% PERRY)55.00Rest Defect Extent (% PERRY)53.70Rev. Defect Extent (% PERRY)10.90 Conclusion 1. Regadenoson cardioisotope stress test showed large infarct involving the mid to distal anterior wa ll extending into the anteroseptal and apical wall with very small amount of yokasta-infarct ischemia. 2. Hypokinesis of mid to distal anterior wall, septal wall and apical wall with ejection fraction lorraine culated at 50%. 3. Low to intermediate risk for cardiac events. Signed by : Partha Tenorio, Electronically Approved : 12/20/2018 12:06:58
== END | disposition home or self-care (01) ==
LOC: NM 08:10
PROVIDERS: ATTEND Internal Medicine Cardiovascular Disease
DX: I25.5 Ischemic cardiomyopathy (principal); J44.9 Chronic obstructive pulmonary disease, unspecified; F17.200 Nicotine dependence, unspecified, uncomplicated; Z79.01 Long term (current) use of anticoagulants
CPT/HCPCS: 78452; 93017; A9500

== ENCOUNTER → 2020-07-13 | Outpatient (CLI) | payer OTHER ==
--- NOTE | 2020-07-13 17:10 | RAD ---
MR#: [id number] Date of Study: 07/13/2020 Ordering Physician: PADDY SERRANO, Referring Physician: JILLIAN MCKAY Tech: RT Quiana (R) (N) APPROVED REPORT Test Type: Exercise Stress Nurse/Tech: Zoe Mcguire RN Test Indications: CAD Cardiac History: PTCA 2018, COPD, x-smoker Medications: See Electronic Medical Record Medical History: See Electronic Medical Record Resting ECG: SR Resting Heart Rate: 59 bpm Resting Blood Pressure: 140/91mmHg Pretest Chest Pain: None Nurse/Tech Notes Lungs CTA, S1S2 Consent: The procedure was explained to the patient in lay terms. Informed consent was witnessed. Brody eout was entered into [employer]. History and Stress Test performed by RT Jorge Montoya) (N) Stress Symptoms No chest pain or symptoms. POST EXERCISE Reason for Termination: Reached target heart rate Target HR: Yes % of Maximum Predicted HR: 126 bpm Exercise duration: 8:10 min:sec, 3 Stage Max Blood Pressure: 171/87mmHg Blood Pressure response to exercise: Normal blood pressure response during stress. Heart Rate response to exercise: normal response Chest Pain: No. Arrhythmia: No. ST Change: No. INTERPRETATION Stress EKG Conclusion: Non-specific ST/T changes suggestive but not diagnostic of ischemia with 1mm u psloping ST segment depression in the inferolateral leads. Imaging Protocol IMAGE PROTOCOL: Rest Tc-99m/stress Tc-99m 1 day Rest: Stress: Viability: Radiopharm.Tc99m GdeizlyiwMv72j Sestamibi Dose10.7mCi 30.6mCi Duration 13min. 13min. Img Date 07/13/2020 07/13/2020 Rest Admin Site:IV - Right HandAdministrator:RT Jorge Araya)(N) Stress Admin Site: IV - Right HandAdministrator: RT Jorge Montoya)(N) STRESS DATA End Diast. Vol.116.0mlLVEDV index BSA57.0ml End Syst. Vol.59.0mlLVESV index BSA29.0ml Myocardial Kinz784.0gEject. Bivfhdom44.0% Stress Scores Regional WT3.00Summed WT19.00 Regional WM0.00Summed WM12.00 LV Perfusion There is a very large sized basal to distal anterior wall and apical fixed defect consistent with ruchi or LAD territory infarct. The mid to distal anterior portion and apical segments of this defect are nonviable. There is a second basal to mid and distal inferoseptal defect again suggestive of prior i nfarct without any significant reversibility noted or ischemia. Wall Motion Mild LV systolic dysfunction with ejection fraction of 50%. LV Perf. Quant 17 Seg. SSS26.00 17 Seg. SRS26.00 17 Seg. SDS1.00 Stress Defect Extent (% LAD)79.40Rest Defect Extent (% LAD)78.10Rev. Defect Extent (% LAD)2.50 Stress Defect Extent (% LCX) 16.30Rest Defect Extent (% LCX)13.80Rev. Defect Extent (% LCX)1.30 Stress Defect Extent (% RCA)32.20Rest Defect Extent (% RCA)36.70Rev. Defect Extent (% RCA)0.00 Stress Defect Extent (% PERRY)56.50Rest Defect Extent (% PERRY)56.10Rev. Defect Extent (% PERRY)1.50 Other Information Quality:Average Risk Assessment: Moderate-High Risk Conclusion 1. Abnormal EKG with baseline anteroseptal infarct. Nonspecific upsloping [address] segment depression suggestive but not conclusive of any ischemia 2. Large anteroseptal and apical infarct without any significant ischemia or reversibility. 3. Mild LV dysfunction with ejection fraction of 49% 4. Moderate to high risk for future cardiovascular events. Signed by : Paddy Serrano, Electronically Approved : 07/13/2020 17:09:56
== END ==
LOC: NM 08:17
PROVIDERS: ATTEND Internal Medicine Cardiovascular Disease
DX: I25.10 Atherosclerotic heart disease of native coronary artery without angina pectoris (principal)
CPT/HCPCS: 78452; 93017; A9500